=== PATIENT | female | born 1970 | race Two or more races ===

== ENCOUNTER 2018-06-07 09:15 | Outpatient (CLI) | payer OTHER ==
[2018-06-07] MEDS ORDERED: SYNTHROID125 MCG PO (14:17)
[2018-06-07] MEDS ORDERED: TAMS0.4C PO (14:19)
[2018-06-07] MEDS ORDERED: [UNRECOGNIZED DRUG - OTHER] PO (14:19)
== END 2018-06-07 09:19 | disposition home or self-care (01) ==
LOC: RAD 09:15
DX: Z01.818 Encounter for other preprocedural examination (principal)

== ENCOUNTER 2018-06-11 05:50 | Day surgery (SDC) | payer OTHER ==
[~2018-06-11 05:50] MED LIST: SYNTHROID125 MCG PO; TAMS0.4C PO; [UNRECOGNIZED DRUG - OTHER] PO
== END 2018-06-11 14:45 | disposition home or self-care (01) ==
LOC: CIR.AMB 05:50
DX: N87.1 Moderate cervical dysplasia (principal); N71.1 Chronic inflammatory disease of uterus

== ENCOUNTER 2024-07-08 07:02 | Day surgery (SDC) | payer OTHER ==
[2024-07-05 10:37] LABS: PH,URINE 6.5 (5.0-8.0); URINE APPEARANCE Clear; URINE BILIRRUBIN Negative (NEGATIVE); URINE BLOOD Negative; URINE COLOR Yellow; URINE GLUCOSE Negative (NEGATIVE); URINE KETONE Negative (NEGATIVE); URINE LEUKOCYTE Trace; URINE NITRATE Negative; URINE PROTEIN Negative (NEGATIVE); URINE UROBILINOGEN 0.2 E.U./dl
[2024-07-05 10:42] LABS: URINE BACTERIA 17.6 uL (0.0-1933); URINE EPITHELIAL CELLS 8.7 uL (0.0-38.8); URINE WBC 3.5 uL (0.0-23.2)
[2024-07-05 10:46] LABS: URINE RBC 1.5 uL (0.0-20.8)
[2024-07-05 11:12] LABS: HEMATOCRIT 38.4 % (36.0-45.00); HEMOGLOBIN 12.9 g/dL (12.0-15.00); MEAN CELL VOLUME 90.4 fL (80.00-100.00); MEAN CORPUSCULAR HEMOGLOBIN 30.4 pg (27.00-32.0); MEAN CORPUSCULAR HGB CONC 33.6 g/dl (32.0-36.0); PLATELET COUNT 250 K/uL (150-450); RED BLOOD COUNT 4.25 M/uL (4.00-6.00); RED CELL DISTRIBUTION WIDTH 13.9 % (11.5-14.5)
[2024-07-05 11:14] LABS: ALBUMIN 4.6 gm/dL (3.4-5.0); BILIRUBIN TOTAL 0.53 mg/dL (0.3-1.2); CALCIUM 10.8 mg/dL (8.5-10.1); CREATININE SERUM 0.94 mg/dL (0.55-1.02); GFR 61.6; GLOBULINA 4.1 G/DL (2.4-3.5); POTASSIUM 3.99 mEq/L (3.5-5.1); TOTAL PROTEIN 8.7 gm/dL (6.4-8.2)
[2024-07-05 11:19] LABS: PARTIAL THROMBOPLASTIN TIME 31.6 SECONDS (22.0-34.0); PROTHROMBIN TIME 10.9 SECONDS (9.0-11.5)
[~2024-07-08 07:02] MED LIST changes: +AMLODIPINE-OLM1 EAC3; +METOPROLOL SUCC50 MG
[2024-07-08] MEDS ORDERED: HEMOSTATIC MATRIX 1 KIT KIT TOP ONE (22:15)
[2024-07-08] MEDS ORDERED: POVIDONE-IODINE 118 ML BOTT TOP ONE (22:15)
[2024-07-08] MEDS ORDERED: CEFAZOLIN SODIUM 1,000 MG VIAL IV ONE (22:15)
== END 2024-07-09 04:30 | disposition home or self-care (01) ==
LOC: CIR.AMB 07:02
PROVIDERS: ATTEND Obstetrics & Gynecology
DX: N76.1 Subacute and chronic vaginitis (principal); N93.8 Other specified abnormal uterine and vaginal bleeding

== ENCOUNTER 2024-09-25 12:11 | Inpatient (IN) | payer OTHER ==
[~2024-09-25] VITALS: Ht 165.1 cm; Wt 59.9 kg
[2024-09-25 10:11] LABS: PH,URINE 7.5 (5.0-8.0); URINE APPEARANCE Clear; URINE BILIRRUBIN Negative (NEGATIVE); URINE BLOOD Negative; URINE COLOR Yellow; URINE GLUCOSE Negative (NEGATIVE); URINE KETONE Negative (NEGATIVE); URINE LEUKOCYTE Negative; URINE NITRATE Negative; URINE PROTEIN Negative (NEGATIVE); URINE UROBILINOGEN 0.2 E.U./dl
[2024-09-25 10:12] LABS: URINE BACTERIA 14.6 uL (0.0-1933); URINE EPITHELIAL CELLS 3.3 uL (0.0-38.8); URINE RBC 3.3 uL (0.0-20.8); URINE WBC 2.2 uL (0.0-23.2)
[2024-09-25 10:18] LABS: HEMATOCRIT 39.9 % (36.0-45.00); HEMOGLOBIN 13.6 g/dL (12.0-15.00); MEAN CORPUSCULAR HEMOGLOBIN 30.3 pg (27.00-32.0); PLATELET COUNT 259 K/uL (150-450); RED BLOOD COUNT 4.48 M/uL (4.00-6.00); RED CELL DISTRIBUTION WIDTH 13.5 % (11.5-14.5)
[2024-09-25 10:29] LABS: INR 0.97; PARTIAL THROMBOPLASTIN TIME 30.3 SECONDS (22.0-34.0); PROTHROMBIN TIME 10.6 SECONDS (9.0-11.5)
[2024-09-25 10:38] VITALS: BP 166/94
[2024-09-25 10:41] VITALS: BP 142/80
[2024-09-25 10:59] LABS: ALBUMIN 4.5 gm/dL (3.4-5.0); BILIRUBIN TOTAL 0.32 mg/dL (0.3-1.2); CALCIUM 11.2 mg/dL (8.5-10.1); CREATININE SERUM 0.91 mg/dL (0.55-1.02); GFR 63.95; GLOBULINA 4.1 G/DL (2.4-3.5); POTASSIUM 4.46 mEq/L (3.5-5.1); TOTAL PROTEIN 8.6 gm/dL (6.4-8.2)
[2024-09-30] MEDS ORDERED: POVIDONE-IODINE 118 ML BOTT TOP ONE (18:19)
[2024-09-30] MEDS ORDERED: CEFAZOLIN SODIUM 1,000 MG VIAL ONE (18:30)
[2024-09-30] MEDS ORDERED: PROMETHAZINE HCL 50 MG/ML AMPUL IM PRN (20:45)
[2024-09-30] MEDS ORDERED: MEPERIDINE HCL/PF 50 MG/ML VIAL IM PRN (20:45)
[2024-09-30] MEDS ORDERED: MORPHINE SULFATE 4 MG/ML VIAL IV ONE ×2 (20:55→21:25)
[2024-09-30] MEDS ORDERED: SIMETHICONE 125 MG CAPSULE PO SCH (21:00)
[2024-09-30] MEDS ORDERED: CEFAZOLIN SODIUM 1,000 MG VIAL IV ONE (21:30)
[2024-09-30] MEDS ORDERED: ONDANSETRON HCL 2 MG/ML VIAL ONE (23:32)
[2024-10-01 00:50] VITALS: BP 142/80
[2024-10-01 01:23] LABS: HEMATOCRIT 37.7 % (36.0-45.00); HEMOGLOBIN 12.8 g/dL (12.0-15.00); MEAN CELL VOLUME 88.3 fL (80.00-100.00); MEAN CORPUSCULAR HEMOGLOBIN 30.1 pg (27.00-32.0); MEAN CORPUSCULAR HGB CONC 34.1 g/dl (32.0-36.0); PLATELET COUNT 227 K/uL (150-450); RED BLOOD COUNT 4.27 M/uL (4.00-6.00); RED CELL DISTRIBUTION WIDTH 13.6 % (11.5-14.5)
[2024-10-01] MEDS ORDERED: KETOROLAC TROMETHAMINE 60 MG VIAL IM STA (08:35)
[2024-10-01 09:00] VITALS: BP 132/77
[2024-10-01] MEDS ORDERED: IBUprofen 800 MG TABLET PO PRN (09:00)
[2024-10-01] MEDS ORDERED: DOCUSATE CALCIUM 240 MG CAPSULE PO SCH (09:00)
[2024-10-01 16:44] VITALS: BP 146/86
[2024-10-02 00:37] VITALS: BP 110/71
[2024-10-02 07:53] VITALS: BP 106/69
== END 2024-10-02 14:54 | disposition home or self-care (01) | DRG 743 ==
LOC: O/R 09-30 06:16 → SURH 09-30 09:03 → OB/GYN 09-30 21:00
PROVIDERS: ADMIT Obstetrics & Gynecology; ATTEND Obstetrics & Gynecology
PROC: 0UT97ZZ Resection of Uterus, Via Natural or Artificial Opening (ICD-10-PCS; principal; 2024-09-30 13:45)
DX: D25.0 Submucous leiomyoma of uterus (principal); N81.4 Uterovaginal prolapse, unspecified; Z90.710 Acquired absence of both cervix and uterus